=== PATIENT | female | born 1955 ===

== ENCOUNTER 2017-01-15 09:53 | Day surgery (SDC) | payer MEDICARE ==
[2017-01-09 09:49] VITALS: BMI 25.5
[2017-01-15] MEDS ORDERED: Propofol 10 mg/ml Inj (20 ML) ONE (11:50)
[2017-01-15] MEDS ORDERED: Absorbable Gelatin Sponge Size 12-7 ONE (11:54)
--- NOTE | 2017-01-15 12:04 | PCM.SURG1 ---
Surgeon's Initial Post Op Note - Surgeon's Notes Surgeon: Elpidio Gonzalez MD Refrigerator Tester: NONE Type of Anesthesia: IV Sedation, Local Pre-Operative Diagnosis: Abnormal LFts Operative Findings: Unremarkable liver on US Post-Operative Diagnosis: Abnormal LFts Operation Performed: US guided right liver biopsy. Three 18 gauge core obtained. Specimen/Specimens Removed: 18 g core x 3 Estimated Blood Loss: EBL {In ML}: 2 Blood Products Given: N/A Drains Used: No Drains Post-Op Condition: Good Date of Surgery/Procedure: 01/15/17 Time of Surgery/Procedure: 12:00
[2017-01-15] MEDS ORDERED: Oxycodone/Acetaminophen 5/325 mg Tab PO STA (12:57)
[2017-01-15] MEDS ORDERED: Oxycodone/Acetaminophen 5/325 mg Tab PO ONE (13:15)
[2017-01-15 13:30] VITALS: O2SAT 100
[2017-01-15 14:08] VITALS: BP 122/69; PULSE 62; RESP 18; TEMP 98
--- NOTE | 2017-01-16 11:57 | US ---
PROCEDURE: Date of procedure: 01/15/2017 Procedure: 1. Ultrasound-guided core liver biopsy, CPT 83579 2. Ultrasound guidance for biopsy, 20468 Medications: The patient is sedated by the anesthesiologist. HISTORY: Abnormal LFTs TECHNIQUE: Following informed consent and procedure time-out, the patient was placed supine on bed and limited ultrasound showed a normal appearing right hepatic lobe. After patient abdomen was prepped and draped in the usual sterile fashion and the skin was anesthetized with 2% lidocaine, an 18 gauge core needle was advanced percutaneously under direct ultrasound guidance into the right hepatic lobe via an intercostal approach. Upon confirmation of needle position, three 18 gauge core specimens were obtained and sent for routine pathology. The biopsy to tract was then embolized with Gelfoam. A post biopsy ultrasound showed no hematoma. A dressing was applied. IMPRESSION: Ultrasound-guided core biopsy right hepatic lobe. There were no immediate complications.
== END 2017-01-15 14:05 | disposition home or self-care (01) ==
LOC: C.SPRAD 09:53
PROVIDERS: ATTEND Radiology Vascular & Interventional Radiology
DX: R94.5 Abnormal results of liver function studies (principal); I10 Essential (primary) hypertension; G47.33 Obstructive sleep apnea (adult) (pediatric); E11.9 Type 2 diabetes mellitus without complications; E78.5 Hyperlipidemia, unspecified; K21.9 Gastro-esophageal reflux disease without esophagitis; I20.9 Angina pectoris, unspecified; M19.90 Unspecified osteoarthritis, unspecified site
CPT/HCPCS: 47000; 82948; 88307; 88313; J2704

== ENCOUNTER 2018-01-20 06:24 | Day surgery (SDC) | payer MEDICARE ==
[2018-01-15 14:23] VITALS: BMI 24.0
[2018-01-20] MEDS ORDERED: Propofol 10 mg/ml Inj (20 ML) ONE (08:08)
[2018-01-20] MEDS ORDERED: Midazolam 2 MG/2 ML VIAL ONE (08:08)
[2018-01-20] MEDS ORDERED: ePHEDrine 50 mg/ml Inj ONE (08:13)
--- NOTE | 2018-01-20 08:27 | CP.SDSHP ---
Same Day Surgery H & P - History Proposed Procedure: colonoscopy Pre-Op Diagnosis: polyp surveillance - Previous Medical/Surgical History Cardiac: Hypertension, Other (hyperliopidemia) Pulmonary: Other (sleep apnea) Endocrine/Metabolic: Diabetes Misc: Other (depression, fatty liver) Previous Surgical History: appendectomy - Allergies Allergies: Allergies No Known Allergies Allergy (Verified 01/15/18 14:22) - Current Medications Current Medications: reviewed, per reconciliation - Physical Exam General Appearance: wdwn nad Vital Signs: Vital Signs 01/20/18 01/20/18 06:47 08:06 Temperature 97 F L 97 F L Pulse Rate 55 L 55 L Respiratory 19 19 Rate Blood Pressure 136/64 136/64 O2 Sat by Pulse 100 100 Oximetry Mental Status: Alert & Oriented x3 Heart: WNL Lungs: WNL GI: WNL - {Optional Preform as Required} Abdomen: WNL - Impression Impression: history of colon polyp Pt. Evaluated Today:Candidate for Anesthesia & Procedure: Yes - Date & Time Date: 01/20/18 Time: 08:27 Short Stay Discharge - Short Stay Discharge Admitting Diagnosis/Reason for Visit: COLON POLYPS Disposition: HOME/ ROUTINE
[2018-01-20 09:05] VITALS: TEMP 98.2
[2018-01-20 09:30] VITALS: O2SAT 100
[2018-01-20 09:32] VITALS: BP 116/65; PULSE 78; RESP 17
== END 2018-01-20 09:52 | disposition home or self-care (01) ==
LOC: C.ENDO 06:24
PROVIDERS: ATTEND Internal Medicine Gastroenterology
DX: K64.8 Other hemorrhoids (principal)
CPT/HCPCS: 45378; 82948; J2250; J2704

== ENCOUNTER 2018-06-29 08:19 | Outpatient (CLI) | payer MEDICARE | END 2018-06-29 08:20 | disposition home or self-care (01) | LOC: C.MAMMO 08:20 ==